=== PATIENT | female | born 1985 | race Caucasian/White ===

== ENCOUNTER 2016-07-07 20:22 | Inpatient (IN) | payer OTHER ==
[~2016-07-07] VITALS: Ht 157.5 cm; Wt 76.7 kg
[2016-07-07 20:27] VITALS: Ht 157.5 cm; Wt 76.7 kg
[2016-07-07 20:35] VITALS: BP 135/63; PULSE 82; RESP 18
[2016-07-07] MEDS ORDERED: PREN1TAB62 PO (20:38)
--- NOTE | 2016-07-07 22:37 | RADRPT ---
PROCEDURE: US biophysical profile. CLINICAL INDICATION: Decreased motion. TECHNIQUE: Multiple sonographic images of the uterus were obtained. The images were revi ewed on a PACS workstation. COMPARISON: No prior studies are available for comparison. FINDINGS: There is a single live intrauterine gestation. heart rate is 137 beats per minute. The position is cephalic. The placenta is posterior grade III with no abruption or previa. The BRYAN is 10.0 cm. (Normal = 5-20 cm.) Breathing Movement: 2 Gross Body Movement: 2 Tone: 2 Qualitative Amniotic Fluid Volume: 2 TOTAL: 8 IMPRESSION: 1. The biophysical score is 8/8. RPTAT: QQ .Julio Villavicencio MD, MD Date Time Electronically viewed and signed by .Julio Villavicencio MD, on 07/07/2016 22:36 .R/
--- NOTE | 2016-07-07 22:56 | HP ---
Date/Time of Note Date/Time of Note DATE: 07/07/16 TIME: 22:53 OB - History Hx of Present Free Text/Dictation Pt is a 30yo G1 at 40+4 by 15wk U/S presenting for evaluation of labor in the setting of back and lower abdominal pains starting earlier today. Pt states she noticed a small amount of red and then pink on the toilet paper after voiding yesterday. Today she noticed a brownish mucous stain on toilet paper as well. Pt denies any recent SIC and denies LOF. Reports normal FM. ------- PROCEDURE: US biophysical profile. CLINICAL INDICATION: Decreased motion. TECHNIQUE: Multiple sonographic images of the uterus were obtained. The images were reviewed on a PACS workstation. COMPARISON: No prior studies are available for comparison. FINDINGS: There is a single live intrauterine gestation. heart rate is 137 beats per minute. The position is cephalic. The placenta is posterior grade III with no abruption or previa. The BRYAN is 10.0 cm. (Normal = 5-20 cm.) Breathing Movement: 2 Gross Body Movement: 2 Tone: 2 Qualitative Amniotic Fluid Volume: 2 TOTAL: 8 IMPRESSION: 1. The biophysical score is 8/8. Care: Good Care Obstetrical Complications: None Medical Complications: Other (Anemia, Hgb 10.9, now resolved on supplemental FeSO4) Past Family/Social History * Past Medical, Surgical, Family and Obstetric Histories reviewed from chart. Blood Type: O+ Rubella: immune RPR/VDRL: Negative GBS Status: Negative HBsAG: Negative OB Admission Exam Vital Signs Vital Signs Vital Signs Date Time Temp Pulse Resp B/P Pulse Ox O2 Delivery O2 Flow Rate FiO2 07/07/16 20:35 98.0 82 18 135/63 Room Air Physical Exam HEENT: WNL Heart: Rhythm Normal Lungs: Clear Abdomen: WNL Extremities: Normal Cervical Dilatation: other (3.5cm-> changed to 4.5cm after 2hrs) Effacement: Other (70%) Station: -2 Membranes: Intact Heart Rate: 120's Accelerations: Accelerations Present Decelerations: Late Decelarations (x2) Varibility: Moderate Contractions on Admission: < 5 Minutes Apart OB Assessment/Plan Other Assessment: Early Labor Category II FHT Plan: Expectant Management Other plan: Admit to L&D 1)Labor: Given pt is making cervical change, will expectantly manage for now and augment if necessary 2)FWB: Reactive NST, nl BPP, Category II FHT -CEFM 3)Pain: Discussed pain options, pt interested in IV meds as labor progresses 4)ID: Afebrile, BOWI, GBS neg Anticipate Plan d/w pt and partner. Questions answered to their satisfaction. ETHEL BRITTON MD Jul 07, 2016 22:56
[2016-07-07] MEDS: LACTATED RINGER'S 1,000 ML IV SCH (23:28)
[2016-07-07] MEDS ORDERED: IBUPROFEN 600 MG TAB PO PRN (23:30)
[2016-07-07] MEDS ORDERED: METHYLERGONOVINE 0.2 MG INJ IM PRN (23:30)
[2016-07-07] MEDS ORDERED: OXYTOCIN 30 UNITS/LR 500 ML IV SCH ×2 (23:30)
[2016-07-07] MEDS ORDERED: OXYTOCIN 30 UNITS/LR 500 ML IV PRN (23:30)
[2016-07-07] MEDS ORDERED: LACTATED RINGER'S 1,000 ML IV PRN (23:30)
[2016-07-07] MEDS ORDERED: MISOPROSTOL 200 MCG TAB PR PRN (23:30)
[2016-07-07] MEDS ORDERED: BUTORPHANOL 2 MG INJ IV PRN ×2 (23:30)
[2016-07-07] MEDS ORDERED: ACETAMINOPHEN/CODEINE #3 TAB PO PRN (23:30)
[2016-07-07] MEDS ORDERED: LIDOCAINE 1% (MPF) 30 ML INJ INJ PRN (23:30)
[2016-07-07] MEDS ORDERED: CARBOPROST 250 MCG INJ IM PRN (23:30)
[2016-07-08 00:07] LABS: BASOPHILS % 0.4 % (0.0-2.0); EOSINOPHILS # 0.1 10^3/ul (0.0-0.5); EOSINOPHILS % 0.9 % (0.0-7.0); HEMATOCRIT 38.3 % (37.0-47.0); HEMOGLOBIN 13.1 g/dl (12.0-16.0); LYMPHOCYTES # 1.9 10^3/ul (0.8-2.9); LYMPHOCYTES % 16.8 % (15.0-51.0); MEAN CORPUSCULAR HEMOGLOBIN 31.7 pg (29.0-33.0); MEAN CORPUSCULAR HGB CONC 34.4 g/dl (32.0-37.0); MEAN CORPUSCULAR VOLUME 92.1 fl (82.0-101.0); MEAN PLATELET VOLUME 11.3 fl (7.4-10.4); MONOCYTE # 0.7 10^3/ul (0.3-0.9); MONOCYTES % 6.3 % (0.0-11.0); NEUTROPHIL # 8.5 10^3/ul (1.6-7.5); NEUTROPHILS % 75.6 % (39.0-77.0); PLATELET COUNT 228 10^3/UL (140-440); RED BLOOD COUNT 4.15 10^6/ul (4.20-5.40); RED CELL DISTRIBUTION WIDTH 13.7 % (11.5-14.5); UNCORRECTED WBC 11.2 10^3/ul (4.8-10.8); WHITE BLOOD COUNT 11.2 10^3/ul (4.8-10.8)
[2016-07-08 00:22] LABS: CONDITION 1
[2016-07-08 00:27] LABS: INR 0.84; PARTIAL THROMBOPLASTIN TIME 27.5 Sec (25.0-35.0); PROTIME 11.5 Sec (12.2-14.2); PT RATIO 0.9
[2016-07-08] MEDS ORDERED: FENTAnyl 2MCG/ML-ROPIV 0.2% 100 ML ONE (03:06)
[2016-07-08] MEDS ORDERED: NALOXONE (0.4 MG/ML) INJ IV PRN (03:30)
[2016-07-08] MEDS: FENTAnyl 2MCG/ML-ROPIV 0.2% 100 ML BAG EPI SCH ×3 (05:57→13:43)
[2016-07-08] MEDS: LACTATED RINGER'S 1,000 ML IV SCH (06:56)
[2016-07-08] MEDS ORDERED: METHYLERGONOVINE 0.2 MG INJ IM PRN (09:00)
[2016-07-08] MEDS ORDERED: OXYTOCIN 30 UNITS/LR 500 ML IV SCH ×2 (09:00)
[2016-07-08] MEDS ORDERED: OXYTOCIN 30 UNITS/LR 500 ML IV PRN (09:00)
[2016-07-08] MEDS ORDERED: CARBOPROST 250 MCG INJ IM PRN (09:00)
[2016-07-08] MEDS ORDERED: LIDOCAINE 1% (MPF) 30 ML INJ INJ PRN (09:00)
[2016-07-08] MEDS ORDERED: MISOPROSTOL 200 MCG TAB PR PRN (09:00)
[2016-07-08] MEDS: OXYTOCIN 30 UNITS/LR 500 ML IV SCH ×4 (15:24→20:55)
--- NOTE | 2016-07-08 15:26 | LDN ---
Date/Time of Note Date/Time of Note DATE: 07/08/16 TIME: 15:22 Delivery Summary Normal spontaneous vaginal delivery of a baby girl from MISSY position shoulder delivered without any difficulty 80s body followed cord was clamped status soft pulsation is oropharyngeal suction was performed with the team present placenta Александр use expulsion inspected complete patient sustained a first degree perineal laceration which repaired with 2-0 chromic catgut and skin approximated with 4-0 chromic catgut estimated blood loss 200 mL at the end of the procedure sponge count was correct Meconium: none Perineum intact?: No Anesthesia type: Epidural Estimated blood loss: 250 Sponge & Needle done & correct: Yes All needle counts correct: Yes Any foreign bodies felt in the: No Problems: Infant Delivery Information Sex Sex: female Apgars 1 Minute: 8 5 Minute: 9 Suctioning Nose & mouth suctioned at erickson: Yes Umbilical Cord Umbilical cord with: 3 Vessels Cord presentations: nuchal cord Cord Blood was obtained: Yes GEN AGUILAR MD Jul 08, 2016 15:26
--- NOTE | 2016-07-08 16:59 | OPRPT ---
Intraop Record Datetime Report Generated by CPN: 07/08/2016 16:59 Datetime: 07/07/2016 20:38 Drug Allergies/Reactions: No Known Allergy (07/07/2016) Datetime: 07/07/2016 20:24 Food Allergies/Reactions: DENIES Latex Allergies/Reactions: No Latex Allergies Datetime: 06/15/2016 12:57 Drug Allergies/Reactions: No Known Allergy (03/11/2013)
--- NOTE | 2016-07-08 16:59 | DELSUM ---
Delivery Summary A-C Datetime Report Generated by CPN: 07/08/2016 16:59 DELIVERY PERSONNEL Design Manager: Lauryn, Maria T MATERNAL INFORMATION Delivery Anesthesia: Epidural Estimated Blood Loss (ml): 300 Placenta Cultured: No Maternal Complications: None Other Maternal Complications: Admit d/t post-dates LABOR SUMMARY EDC: 07/03/2016 00:00 No. Babies in Womb: 1 Attempted: No Labor Anesthesia: Epidural LABOR INFORMATION Reason for Induction: Postterm Onset of Labor: 07/07/2016 23:02 Complete Dilatation: 07/08/2016 14:27 Cervical Ripening Agents: Other Oxytocin: Induction Group B Beta Strep: Negative Antibiotics # of Doses: none Antibiotics Time of Last Dose: n/a Steroids Given: None Reason Steroids Not Administered: Not Applicable MEMBRANES Membranes Rupture Method: Spontaneous Rupture of Membranes: 07/08/2016 11:21 Length of Rupture (hr): 3.50 Amniotic Fluid Color: Clear Amniotic Fluid Amount: Moderate Amniotic Fluid Odor: Normal STAGES OF LABOR Stage 1 hr: 15 Stage 1 min: 25 Stage 2 hr: 0 Stage 2 min: 24 Stage 3 hr: 0 Stage 3 min: 10 Total Time in Labor hr: 15 Total Time in Labor min: 59 VAGINAL DELIVERY Laceration Extension: First Degree Laceration Type: Perineal Laceration Repair: Yes Initial Vag Sponge Count: 20 Final Vag Sponge Count: 20 Initial Vag Sharps Count: 2 Final Vag Sharps Count: 2 Sponge Count Correct: Yes Sharps Count Correct: Yes BABY A INFORMATION Infant Delivery Date/Time: 07/08/2016 14:51 Method of Delivery: Vaginal Born in Route : No : N/A Forceps: N/A Vacuum Extraction: N/A Shoulder Dystocia : No SHOULDER DYSTOCIA BABY A Infant Delivery Date/Time: 07/08/2016 14:51 PRESENTATION/POSITION BABY A Presentation: Cephalic Presentation: Cephalic Cephalic Presentation: Vertex Vertex Position: Left Occipital Anterior Breech Presentation: N/A PLACENTA INFORMATION BABY A Placenta Delivery Time : 07/08/2016 15:01 Placenta Method of Delivery: Spontaneous Placenta Status: Delivered SCORES BABY A Heart Rate 1 min: >100 bpm Resp Effort 1 min: Good Cry Reflex Irritability 1 min: Cough/Sneeze/Pulls Away Muscle Tone 1 min: Active Motion Color 1 min: Blue/Pale Resuscitation Effort 1 min: Tactile Stimulation SCORE 1 MIN: 8 Heart Rate 5 min: >100 bpm Resp Effort 5 min: Good Cry Reflex Irritability 5 min: Cough/Sneeze/Pulls Away Muscle Tone 5 min: Active Motion Color 5 min: Body Seven Points, Extremit Blue Resuscitation Effort 5 min: Tactile Stimulation SCORE 5 MIN: 9 INFANT INFORMATION BABY A Gestational Age at Delivery: 40.5 Gestational Status: Full Term- 39- 40.6 Weeks Outcome : Liveborn Condition : Stable Sex: Female Sex: Female IDENTIFICATION/MEDS BABY A ID Band Number: [id number] ID Band Location: Right Leg; Left Arm Sensor Applied: Yes Sensor Number: [id number] Sensor Location : Cord Clamp Vitamin K Given : Not Given Erythromycin Given: Not Given WEIGHT/LENGTH BABY A Birthweight (gm): 3035 Weight (lb): 6 Infant Weight (oz): 11 Length (in): 19.00 Infant Length (cm): 48.26 CORD INFORMATION BABY A No. Cord Vessels: 3 Nuchal Cord : N/A Cord Blood Taken: Yes Suction: Mouth; Nose ASSESSMENT BABY A Infant Complications: None Physical Findings at Delivery: Within Normal Limits Respirations: Appears Normal Plant Anatomist/ALS Called : No Care By: DESHAWN CORBETT Transferred To: Remains with Mother
[2016-07-08 17:00] VITALS: BP 129/78; PULSE 70; RESP 18
[2016-07-08] MEDS ORDERED: ONDANSETRON 4 MG INJ IV PRN (17:00)
[2016-07-08] MEDS ORDERED: ACETAMINOPHEN 325 MG TAB PO PRN (17:00)
[2016-07-08] MEDS ORDERED: WITCH HAZEL/GLYCERIN PAD PR PRN (17:00)
[2016-07-08] MEDS ORDERED: DIBUCAINE 1% 30 GM OINT PR PRN (17:00)
[2016-07-08] MEDS ORDERED: OXYCODONE/ASPIRIN (4.88/325) TAB PO PRN ×2 (17:00)
[2016-07-08] MEDS ORDERED: BENZOCAINE 20% 56 ML SPRAY TOP PRN (17:00)
[2016-07-08] MEDS ORDERED: ACETAMINOPHEN/CODEINE #3 TAB PO PRN ×2 (17:00)
[2016-07-08] MEDS ORDERED: LANOLIN 7 GM TUBE TOP PRN (17:00)
[2016-07-08] MEDS: IBUPROFEN 600 MG TAB PO SCH (17:38)
[2016-07-08 19:44] VITALS: BP 122/72; PULSE 80; RESP 18
[2016-07-08] MEDS: SENNA/DOCUSATE NA (8.6MG/50MG) TAB PO SCH (20:03)
[2016-07-09] VITALS: BP 108/66; PULSE 72; RESP 16
[2016-07-09] MEDS: IBUPROFEN 600 MG TAB PO SCH ×5 (00:06→23:48)
[2016-07-09 04:10] VITALS: BP 127/60; PULSE 78; RESP 18
[2016-07-09 08:15] VITALS: BP 107/63; PULSE 68; RESP 16
[2016-07-09 08:25] LABS: BASOPHILS % 0.3 % (0.0-2.0); EOSINOPHILS # 0.1 10^3/ul (0.0-0.5); EOSINOPHILS % 0.8 % (0.0-7.0); HEMATOCRIT 31.6 % (37.0-47.0); HEMOGLOBIN 10.8 g/dl (12.0-16.0); LYMPHOCYTES # 1.7 10^3/ul (0.8-2.9); MEAN CORPUSCULAR HEMOGLOBIN 31.6 pg (29.0-33.0); MEAN CORPUSCULAR HGB CONC 34.2 g/dl (32.0-37.0); MEAN CORPUSCULAR VOLUME 92.4 fl (82.0-101.0); MEAN PLATELET VOLUME 11.1 fl (7.4-10.4); MONOCYTE # 0.6 10^3/ul (0.3-0.9); MONOCYTES % 4.8 % (0.0-11.0); NEUTROPHIL # 10.3 10^3/ul (1.6-7.5); NEUTROPHILS % 81.1 % (39.0-77.0); PLATELET COUNT 204 10^3/UL (140-440); RED BLOOD COUNT 3.42 10^6/ul (4.20-5.40); RED CELL DISTRIBUTION WIDTH 13.6 % (11.5-14.5); UNCORRECTED WBC 12.7 10^3/ul (4.8-10.8); WHITE BLOOD COUNT 12.7 10^3/ul (4.8-10.8)
[2016-07-09 08:31] LABS: CONDITION 1
[2016-07-09] MEDS ORDERED: INFLUENZA VIRUS VACCINE 0.5 ML SYG IM* ONE (09:00)
[2016-07-09] MEDS: SENNA/DOCUSATE NA (8.6MG/50MG) TAB PO SCH ×2 (09:51→20:42)
[2016-07-09 16:00] VITALS: BP 113/63; PULSE 70; RESP 18
--- NOTE | 2016-07-09 18:29 | PN ---
Date/Time of Note Date/Time of Note DATE: 07/09/16 TIME: 18:28 OB Subjective Subjective Subjective day 1 Vital sign is stable afebrile abdomen soft uterus firm lochia normal extremity normal Laboratory Tests Test 07/09/16 07:25 Basophils # 0.010^3/ul Basophils % 0.3% Blood Morphology Comment Eosinophils # 0.110^3/ul Eosinophils % 0.8% Hematocrit 31.6% Hemoglobin 10.8g/dl Lymphocytes # 1.710^3/ul Lymphocytes % 13.0% Mean Corpuscular Hemoglobin 31.6pg Mean Corpuscular Hemoglobin Concent 34.2g/dl Mean Corpuscular Volume 92.4fl Mean Platelet Volume 11.1fl Monocytes # 0.610^3/ul Monocytes % 4.8% Neutrophils # 10.310^3/ul Neutrophils % 81.1% Nucleated Red Blood Cells # 0.010^3/ul Nucleated Red Blood Cells % 0.0/100WBC Platelet Count 03773^3/UL Red Blood Count 3.4210^6/ul Red Cell Distribution Width 13.6% White Blood Count 12.710^3/ul Current Medications Medications (Trade) Dose Ordered Sig/Janna Route PRN Reason Start Time Stop Time Status Last Admin Dose Admin Lactated Ringer's (Lr) 1,000 ml @ 125 mls/hr Q8H IV 07/07/16 23:11 07/08/16 16:57 DC 07/08/16 06:56 Butorphanol Tartrate (Stadol) 1 mg Q2H PRN IV PAIN 07/07/16 23:30 07/08/16 16:57 DC Butorphanol Tartrate (Stadol) 2 mg Q2H PRN IV PAIN 07/07/16 23:30 07/08/16 16:57 DC Lidocaine 30 ml 30 ml ONCE PRN INJ EPISIOTOMY/TEARING 07/07/16 23:30 07/08/16 08:47 DC Oxytocin/Lactated Ringer's 500 ml @ 125 mls/hr ONCE -MAY REPEAT X1 IV 07/07/16 23:30 07/08/16 08:47 DC Oxytocin/Lactated Ringer's 500 ml @ 125 mls/hr ONCE IV 07/07/16 23:30 07/08/16 08:47 DC Ibuprofen (Motrin) 600 mg ONCE PRN PO Mild Pain (Pain Score 1-3) 07/07/16 23:30 07/08/16 16:57 DC Acetaminophen/ Codeine Phosphate 2 tab 2 tab ONCE PRN PO Moderate to Severe Pain (4-10) 07/07/16 23:30 07/08/16 16:57 DC Lactated Ringer's 1,000 ml @ 2,000 mls/hr Q30M PRN IV PRE-EPIDURAL BOLUS 07/07/16 23:30 07/08/16 16:57 DC 07/08/16 02:46 Oxytocin/Lactated Ringer's 500 ml @ 0 mls/hr ONCE PRN IV For Hemorrhage Management 07/07/16 23:30 07/08/16 08:47 DC Methylergonovine Maleate (Methergine) 0.2 mg ONCE PRN IM VAGINAL BLEEDING 07/07/16 23:30 07/08/16 08:47 DC Carboprost Tromethamine (Hemabate) 250 mcg ONCE PRN IM VAGINAL BLEEDING 07/07/16 23:30 07/08/16 08:47 DC Misoprostol 1000 mcg 1,000 mcg ONCE PRN MS VAGINAL BLEEDING 07/07/16 23:30 07/08/16 08:47 DC Fentanyl/ Ropivacaine 100 ml @ ud STK-MED ONCE .ROUTE 07/08/16 03:06 07/08/16 03:07 DC Naloxone HCl (Narcan) 0.2 mg Q2M PRN IV FOR RESP RATE 8 OR LESS 07/08/16 03:30 07/08/16 16:57 DC Fentanyl/ Ropivacaine 100 ml 100 ml EPIDURAL (PCEA) EPI 07/08/16 03:30 07/08/16 16:57 DC 07/08/16 13:43 Oxytocin/Lactated Ringer's 500 ml @ 0 mls/hr TITRATE IV 07/08/16 09:00 07/08/16 16:57 DC 07/08/16 09:08 Lidocaine 30 ml 30 ml ONCE PRN INJ EPISIOTOMY/TEARING 07/08/16 09:00 07/08/16 16:57 DC Oxytocin/Lactated Ringer's 500 ml @ 125 mls/hr ONCE -MAY REPEAT X1 IV 07/08/16 09:00 07/08/16 16:57 DC 07/08/16 16:11 Oxytocin/Lactated Ringer's 500 ml @ 125 mls/hr ONCE IV 07/08/16 09:00 07/08/16 16:57 DC Oxytocin/Lactated Ringer's 500 ml @ 0 mls/hr ONCE PRN IV For Hemorrhage Management 07/08/16 09:00 07/08/16 16:57 DC Methylergonovine Maleate (Methergine) 0.2 mg ONCE PRN IM VAGINAL BLEEDING 07/08/16 09:00 07/08/16 16:57 DC Carboprost Tromethamine (Hemabate) 250 mcg ONCE PRN IM VAGINAL BLEEDING 07/08/16 09:00 07/08/16 16:57 DC Misoprostol 1000 mcg 1,000 mcg ONCE PRN MS VAGINAL BLEEDING 07/08/16 09:00 07/08/16 16:57 DC Oxytocin/Lactated Ringer's 500 ml @ 125 mls/hr Q4H IV 07/08/16 16:55 07/09/16 00:54 DC 07/08/16 17:37 Ibuprofen (Motrin) 600 mg Q6 PO 07/08/16 18:00 07/09/16 17:40 Acetaminophen (Tylenol Tab) 650 mg Q4H PRN PO PAIN LEVEL 1-5 07/08/16 17:00 Acetaminophen/ Codeine Phosphate (Tylenol No.3) 1 tab Q4H PRN PO PAIN LEVEL 1-5 07/08/16 17:00 07/08/16 20:02 Acetaminophen/ Codeine Phosphate (Tylenol No.3) 2 tab Q4H PRN PO PAIN LEVEL 6-10 07/08/16 17:00 Oxycodone/Aspirin (Percodan) 1 tab Q3H PRN PO PAIN LEVEL 1-5 07/08/16 17:00 Oxycodone/Aspirin (Percodan) 2 tab Q3H PRN PO PAIN LEVEL 6-10 07/08/16 17:00 Ondansetron HCl (Zofran Inj) 4 mg Q6H PRN IV NAUSEA AND/OR VOMITING 07/08/16 17:00 Senna/Docusate Sodium (Senokot-S) 1 tab BID PO 07/08/16 21:00 07/09/16 09:51 Witch Katrin/ Glycerin (Tucks Pads) 1 pad BEDSIDE MEDICATION PRN MS HEMORRHOID/EPISIOTMY PAIN 07/08/16 17:00 07/08/16 17:37 Benzocaine (Dermoplast Silver) 1 spray BEDSIDE MEDICATION PRN TOP HEMORRHOID/EPISIOTMY PAIN 07/08/16 17:00 07/08/16 18:22 Dibucaine (Nupercainal) 1 applic BEDSIDE MEDICATION PRN MS HEMORRHOID/EPISIOTMY PAIN 07/08/16 17:00 Lanolin (Ohy-C-Jzlbzd) 1 applic BEDSIDE MEDICATION PRN TOP BEDSIDE FOR IDA TO NIPPLES 07/08/16 17:00 07/08/16 17:37 Measles/Mumps/ Rubella Vaccine Live (Mmr Ii Vaccine) 0.5 ml ONCE ONCE SC* 07/10/16 09:00 07/10/16 09:01 Influenza Virus Vaccine (Fluzone) 0.5 ml ONCE ONCE IM* 07/09/16 09:00 07/09/16 09:01 DC 07/09/16 09:52 GEN AGUILAR MD Jul 09, 2016 18:29
[2016-07-09 20:00] VITALS: BP 119/62; PULSE 77; RESP 18
[2016-07-10 04:15] VITALS: BP 104/62; PULSE 59; RESP 16
[2016-07-10] MEDS: IBUPROFEN 600 MG TAB PO SCH ×2 (05:32→11:20)
[2016-07-10 08:20] VITALS: BP 86/56; PULSE 57; RESP 19
[2016-07-10] MEDS: SENNA/DOCUSATE NA (8.6MG/50MG) TAB PO SCH (08:45)
[2016-07-10] MEDS ORDERED: MEASLES,MUMPS,RUBELLA VACCINE INJ SC* ONE (09:00)
--- NOTE | 2016-07-10 09:45 | PD.PPDC ---
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
--- NOTE | 2016-07-10 09:47 | DS ---
Date/Time of Note Date/Time of Note DATE: 07/10/16 TIME: 09:45 Obstetrical Discharge Record Final Diagnosis Final Diagnosis: Term delivered Vaginal Delivery Obstetrical Delivery: Spontaneous Condition on Discharge Physical Assessment Last Vitals: Vital sign a stable afebrile abdomen soft uterus firm lochia normal extremity normal patient discharged home with follow-up instruction to make appointment in 2 weeks to be seen at the clinic Voiding: Yes Bowel Movement: Yes Breast: Filling Fundus: Firm Calf Tenderness: No Patient Condition: Good GEN AGUILAR MD Jul 10, 2016 09:47
== END 2016-07-10 15:00 | disposition home or self-care (01) | DRG 775 ==
LOC: OBT 20:22 → L-D 20:23 → OBT 23:12 → L-D 23:15 → PP1 07-08 17:01
PROVIDERS: ADMIT Obstetrics & Gynecology; ATTEND Obstetrics & Gynecology
PROC: 10E0XZZ Delivery of Products of Conception, External Approach (ICD-10-PCS; principal; 2016-07-08)
DX: O69.81X0 Labor and delivery complicated by cord around neck, without compression, not applicable or unspecified (principal); Z37.0 Single live birth; Z3A.40 40 weeks gestation of pregnancy
CPT/HCPCS: 36415; 62319; 76818; 85025; 85610; 85730; 86592; 86900; 86901; 87340; 90686; G0463; J2590; J3010; J7120

== ENCOUNTER 2018-08-01 14:39 | Outpatient (CLI) | payer OTHER ==
[~2018-08-01] VITALS: Ht 157.5 cm; Wt 80.0 kg
[~2018-08-01 14:39] MED LIST: PNV11TAB PO; PREN1TAB62 PO
[2018-08-01 15:15] VITALS: Ht 157.5 cm; Wt 80.0 kg
[2018-08-01 15:16] VITALS: BP 124/70
--- NOTE | 2018-08-01 16:44 | TRIAGE ---
OB Triage Datetime Report Generated by CPN: 08/01/2018 16:44 Datetime: 08/01/2018 16:12 Dilatation (cms): 2.0 Effacement (%): 60 Station: -3 Exam By: cory martínez Datetime: 08/01/2018 15:19 Stage of : OB Triage Assessment Type: Triage Level of Consciousness: Fully Conscious DTR's/Clonus: DTRs 2+; No Clonus Headache: Denies Blurred Vision: No Respiratory Effort: Unlabored; Regular Rhythm; Equal Expansion Breath Sounds, Left: Clear and Equal Breath Sounds, Right: Clear and Equal Nausea/Vomiting: Denies RUQ Epigastric Pain: Denies Lower Extremities Edema: None Degree: None Upper Extremities Edema: None Degree: None Facial Edema: None Temperature Route: Oral History of Falling: (0) No Secondary Diagnosis: (0) No Ambulatory Aid: (0) Bedrest/Nurse Assist IV Therapy: (0) No Gait: (0) Normal/Bedrest/Immobile Mental Status: (0) Oriented to Own Ability Fall Score: 0 Fall Risk Score Definition: No Risk: No action required Monitor Mode: External (Annotations: INIITAL PLACEMENT ) Monitor Mode: External US (Annotations: INITIAL PLACEMENT ) Pain Scale: 3 Pain Presence: Intermittent Pain Type: Pressure Pain Location: Abdomen Datetime: 08/01/2018 15:18 Time of Arrival: 08/01/2018 14:35 EGA: 40.0 Arrived By: Ambulatory Arrived From: Home Chief Complaint: NST BPP FOR TERM Movement: Present Contractions: Denies/Absent Rupture of Membranes: Denies Vaginal Bleeding: None Vaginal Discharge: Denies Recent Sexual Intercouse: Denies Abdominal Trauma: Not Applicable Patient Complaints: Other Provider Notified: DR. CHAPMAN Initial Plan: NST BPP
--- NOTE | 2018-08-26 10:43 | PN ---
Triage Information Date/Time service rendered on 08/01/18 Reason for visit: postdate for antepartum test Weeks of Gestation 40w /Para Diabetes: none Hypertention: none Objective Heart Rate: 140's Contractions: None Exam VE 2/60/-3 Results/Medications Imaging Results BPP 02/05 BRYAN 19.1 Disposition: Discharge Assessment/Plan A IUP 40w NIL P discharge home with routine labor instructions RADHA CHAPMAN MD Aug 26, 2018 10:43
== END 2018-08-01 17:02 | disposition home or self-care (01) ==
LOC: L-D 14:39 → OBT 14:39
PROVIDERS: ATTEND Obstetrics & Gynecology
DX: O48.0 Post-term pregnancy (principal); Z3A.40 40 weeks gestation of pregnancy
CPT/HCPCS: 76818; Z7500; G0463